=== PATIENT | male | born 1955 | race Caucasian/White ===

== ENCOUNTER 2021-02-01 05:29 | Emergency (ER) | payer SELFPAY ==
[~2021-02-01] VITALS: Ht 162.6 cm; Wt 76.0 kg
--- NOTE | 2021-02-01 05:44 | NUR ---
Pt ambulatory with steady gait to room
[2021-02-01] MEDS ORDERED: SODIUM CHLORIDE 0.9% 1,000ML IVBOLUS ONE ×2 (06:00→08:00)
[2021-02-01] MEDS ORDERED: MORPHINE SULFATE 4 MG/ML, 1ML IVPush PRN (06:00)
[2021-02-01] MEDS ORDERED: ONDANSETRON 2MG/ML, 2ML IVPush ONE (06:00)
[2021-02-01] MEDS ORDERED: SODIUM CHLORIDE FLUSH 10ML SYR IVF ONE (06:00)
[2021-02-01] MEDS ORDERED: MORPHINE SULFATE 4 MG/ML, 1ML ONE (06:01)
[2021-02-01] MEDS ORDERED: ONDANSETRON 2MG/ML, 2ML ONE (06:01)
[2021-02-01 06:26] LABS: BASOPHILS % (AUTO) 0 % (0-1); EOSINOPHILS % (AUTO) 2 % (1-7); LYMPHOCYTES % (AUTO) 13 % (22-44); MEAN CORPUSCULAR HEMOGLOBIN 31.2 pg (27.5-34.5); MEAN CORPUSCULAR HGB CONC 33.8 g/dL (33.2-36.2); MEAN PLATELET VOLUME 6.7 fL (7.4-10.4); MONOCYTES % (AUTO) 11 % (2-9); NEUTROPHILS % (AUTO) 73 % (42-75); PLATELET COUNT 265 x10^3/uL (130-400); RED BLOOD COUNT 4.77 x10^6/uL (4.38-5.82); RED CELL DISTRIBUTION WIDTH 14.5 % (9.4-14.8)
[2021-02-01 06:36] LABS: MICROSCOPIC NOT IND
[2021-02-01 06:37] LABS: ALANINE AMINOTRANSFERASE 26 U/L (12-78); ALBUMIN 3.5 g/dL (3.4-5.0); ANION GAP 4 mmol/L (5-15); CALCIUM 8.1 mg/dL (8.5-10.1); CHLORIDE 108 mmol/L (98-107); CREATININE 0.48 mg/dL (0.7-1.3)
[2021-02-01 06:39] LABS: ALKALINE PHOSPHATASE 81 U/L (45-117); BILIRUBIN,TOTAL 0.3 mg/dL (0.2-1.0)
--- NOTE | 2021-02-01 06:53 | NUR ---
Pt arrived with complaints of COCHRAN, N/V, ab pain, bilat shoulder pain x2 days. A&O x4, speaking in full sentences. Placed on BP and O2 monitors, at bedside, SYRIAC SPEAKING, able to provide UA. IV place and labs sent. VSS, WCTM.
--- NOTE | 2021-02-01 06:55 | NUR ---
Report to Betina DOWD
--- NOTE | 2021-02-01 06:56 | NUR ---
sbar report received from duc Gallardo currently in [place]. All task complete.
[2021-02-01] MEDS ORDERED: OMNIPAQUE 350 MG/ML, 100ML BOTTLE ONE (07:02)
--- NOTE | 2021-02-01 07:32 | NUR ---
PT AMBULATED TO RESTROOM AND BACK W/O INCIDENT. REHOOKED TO BP AND O2 MONITOR. PT VSS, NADN. CALL LIGHT W/IN REACH.
--- NOTE | 2021-02-01 08:02 | NUR ---
2ND IVF BOLUS STARTED PER SEP. VSS, NADN, CALL LIGHT W/ IN REACH
[2021-02-01 09:05] VITALS: BP 100/86
== END 2021-02-01 09:15 | disposition home or self-care (01) ==
LOC: ED 06:03
DX: R10.84 Generalized abdominal pain (principal); R19.7 Diarrhea, unspecified; R11.0 Nausea
CPT/HCPCS: 36415; 74177; 80053; 81003; 83690; 85025; 96361; 96374; 96375; 99285; J2270; J2405; J7030; Q9967